=== PATIENT | male | born 1950 | race Caucasian/White ===

== ENCOUNTER → 2017-10-04 | Outpatient (CLI) | payer OTHER ==
[~2017-10-04] MED LIST: CMD/25 PO; ESCI1TAB10 PO; TAMS0.4C38 PO
[2017-10-04 12:34] LABS: BASO % 0.5 %; BASO ABS # 0.04 K/uL (0-0.2); COMPLETE YES; EOS % 1.1 %; HEMATOCRIT 50.3 % (42-52); IG% 0.4 %; LYMPH % 13.1 %; LYMPH ABS # 0.98 K/uL (1.2-3.4); MEAN CELL VOLUME 84.1 fL (80-100); MEAN CORPUSCULAR HEMOGLOBIN 28.8 pg (25-34); MEAN CORPUSCULAR HGB CONC 34.2 g/dl (32-36); MEAN PLATELET VOLUME 10.5 fL (7.4-10.4); MONO % 5.4 %; NEUT % 79.5 %; PLATELET COUNT 201 K/uL (130-400); RED BLOOD COUNT 5.98 M/uL (4.7-6.1); WHITE BLOOD COUNT 7.46 K/uL (4.8-10.8)
[2017-10-04 13:32] LABS: INSULIN FASTING 14.4 mU/L (3-25)
[2017-10-04 13:52] LABS: ESTIMATED AVERAGE GLUCOSE 114 mg/dl; HA1C FLAG Normal (Normal)
[2017-10-04 14:05] LABS: ALT/SGPT 37 U/L (12-78); AST/SGOT 21 U/L (15-37); BLOOD UREA NITROGEN 21 mg/dl (7-18); BUN/CREATININE RATIO 17.5 (10-20); CALCIUM 9.3 mg/dl (8.5-10.1); CARBON DIOXIDE 25 mmol/L (21-32); CHLORIDE 107 mmol/L (98-107); CREATININE 1.22 mg/dl (0.60-1.40); GLUCOSE 109 mg/dl (70-99); POTASSIUM 4.1 mmol/L (3.5-5.1); SODIUM 141 mmol/L (136-145)
[2017-10-04 14:08] LABS: ALKALINE PHOSPHATASE 97 U/L (45-117)
== END | disposition home or self-care (01) ==
LOC: C.LAB 09:58
PROVIDERS: ATTEND General Practice
DX: A69.20 Lyme disease, unspecified (principal); E11.00 Type 2 diabetes mellitus with hyperosmolarity without nonketotic hyperglycemic-hyperosmolar coma (NKHHC); E55.9 Vitamin D deficiency, unspecified; B25.9 Cytomegaloviral disease, unspecified; A77.0 Spotted fever due to Rickettsia rickettsii; A44.0 Systemic bartonellosis; A77.9 Spotted fever, unspecified; B60.0 Babesiosis; B27.90 Infectious mononucleosis, unspecified without complication

== ENCOUNTER → 2017-12-26 | Outpatient (CLI) | payer OTHER ==
[2017-12-26 10:16] LABS: BASO % 0.8 %; BASO ABS # 0.05 K/uL (0-0.2); EOS % 1.1 %; EOS ABS # 0.07 K/uL (0-0.5); HEMATOCRIT 48.1 % (42-52); HEMOGLOBIN 16.6 g/dL (14.0-18.0); IG# 0.03 K/uL (0.00-0.02); LYMPH % 15.9 %; LYMPH ABS # 1.02 K/uL (1.2-3.4); MEAN CELL VOLUME 82.8 fL (80-100); MEAN CORPUSCULAR HEMOGLOBIN 28.6 pg (25-34); MEAN CORPUSCULAR HGB CONC 34.5 g/dl (32-36); MONO % 6.9 %; MONO ABS # 0.44 K/uL (0.11-0.59); NEUT % 74.8 %; PLATELET COUNT 191 K/uL (130-400); RED CELL DISTRIBUTION WIDTH CV 13.8 % (11.5-14.5); RED CELL DISTRIBUTION WIDTH SD 41.6 fL (36.4-46.3); WHITE BLOOD COUNT 6.41 K/uL (4.8-10.8)
[2017-12-26 10:28] LABS: HEMOGLOBIN A1C 5.6 % (4.5-5.6)
[2017-12-26 10:48] LABS: ALBUMIN 3.8 gm/dl (3.4-5.0); ALT/SGPT 25 U/L (12-78); AST/SGOT 18 U/L (15-37); BLOOD UREA NITROGEN 24 mg/dl (7-18); CALCIUM 9.4 mg/dl (8.5-10.1); CARBON DIOXIDE 29 mmol/L (21-32); CREATININE 1.48 mg/dl (0.60-1.40); GLUCOSE 108 mg/dl (70-99); SODIUM 137 mmol/L (136-145)
[2017-12-26 10:54] LABS: ALKALINE PHOSPHATASE 84 U/L (45-117); CHOLESTEROL 230 mg/dl (0-200); LDL CHOLESTEROL CALCULATED 157 mg/dl; TOTAL PROTEIN 7.4 gm/dl (6.4-8.2)
== END | disposition home or self-care (01) ==
LOC: C.LAB 09:33
PROVIDERS: ATTEND General Practice
DX: A69.20 Lyme disease, unspecified (principal); E78.5 Hyperlipidemia, unspecified; E72.11 Homocystinuria; E11.00 Type 2 diabetes mellitus with hyperosmolarity without nonketotic hyperglycemic-hyperosmolar coma (NKHHC); N40.0 Benign prostatic hyperplasia without lower urinary tract symptoms; E55.9 Vitamin D deficiency, unspecified; R79.82 Elevated C-reactive protein (CRP)

== ENCOUNTER 2019-01-26 18:17 | Inpatient (IN) ==
[2019-01-26] MEDS ORDERED: ONDANSETRON INJ 2 MG/ML 2 ML VIAL IV STA (18:35)
[2019-01-26] MEDS ORDERED: SODIUM CHLORIDE 0.9% 1000ML 1,000 ML IV SCH (18:45)
--- NOTE | 2019-01-26 18:59 | Emergency Department Note ---
Entered by Alon Arredondo acting as a scribe for Kyrie Esquivel MD History of Present Illness General Chief complaint: Dehydration Stated complaint: HAD FLU, DEHYDRATION Time Seen by Provider: 01/26/19 18:24 Source: patient History of Present Illness Onset (ago): day(s) (this morning) Location: head Pain Consistency: + constant Quality: + other (weakness) Associated symptoms: + other (Positive for nausea, vomiting, a headache, chest pain, multiple watery stools, and feeling dizzier than usual. Negative for fever, chills, SOB, LOC, abdominal pain, numbness, and urinary symptoms.) The patient is a 68 year old male who presents to the emergency department with complaints of constant weakness beginning this morning. The patient states that he has a history of cerebellar ataxia and Crohns Disease. He notes that he has an ostomy in place and had multiple watery stools last night. He reports that he woke up this morning and was so weak that he could barely walk. He states that he also fell in the bathroom an hour ago and hit his right ribs because of his weakness. The patient notes that he did not hit his head but he reports that he has some chest pain. He also complains of nausea, vomiting, and a headache. He reports that he feels dizzier than usual. He denies any fever, chills, SOB, LOC, abdominal pain, numbness, and urinary symptoms. Home Medications Home Medications Medication Instructions Recorded Confirmed Type mbzybqx-arsceztulwkiq-rtraodll 1 - 2 tab PO Q6H PRN 01/26/19 01/27/19 History [Excedrin Extra Strength] diphenhydramine HCl [Benadryl] 25 mg PO HS 01/26/19 01/27/19 History escitalopram oxalate [Lexapro] 10 mg PO DAILY 01/26/19 01/27/19 History gabapentin 300 mg PO DAILY 01/26/19 01/27/19 History loratadine [Claritin] 10 mg PO HS 01/26/19 01/27/19 History venlafaxine 150 mg PO DAILY 01/26/19 01/27/19 History warfarin 5 mg PO DAILY 01/26/19 01/26/19 History Allergies Allergy/AdvReac Type Severity Reaction Status Date / Time No Known Allergies Allergy Unverified 01/26/19 19:04 Past Med/Surg History Medical History Cerebellar ataxia (Acute) Concussion (Acute) Crohns disease Surgical History History of colectomy Family History Other No significant family history Social History Preferred Language: Italian Communication Ability: Effective 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 and A total of 10 systems reviewed and were otherwise negative Physical Exam Vital Signs Vital Signs - 24 hr 01/26/19 18:18 01/26/19 20:02 01/26/19 21:32 Temperature Temperature Source Oral Sepsis Recent Fever Within 48 Hours No Sepsis New/Unexplained Change in Mental Status No Sepsis Action Taken by Nursing No Action Required Pulse Rate 108 H Pulse Rate [Right Finger] 87 89 Pulse Rhythm [Right Finger] Regular Pulse Strength [Right Finger] Normal Respiratory Rate 20 18 18 Respiratory Effort / Characteristics Non-Labored Non-Labored Respiratory Depth Normal Normal Respiratory Pattern Regular Blood Pressure 100/67 Blood Pressure [Left Arm] 152/115 H 139/89 Blood Pressure [Right Arm] Blood Pressure Mean 78 Blood Pressure Mean [Left Arm] 127 105 Blood Pressure Mean [Right Arm] Blood Pressure Position [Left Arm] Lying Pulse Oximetry 98 94 98 Oxygen Delivery Method Room Air Room Air 01/26/19 23:25 01/26/19 23:32 Temperature 36.6 C 36.6 C Temperature Source Oral Oral Sepsis Recent Fever Within 48 Hours Sepsis New/Unexplained Change in Mental Status Sepsis Action Taken by Nursing Pulse Rate Pulse Rate [Right Finger] 85 86 Pulse Rhythm [Right Finger] Pulse Strength [Right Finger] Respiratory Rate 22 22 Respiratory Effort / Characteristics Non-Labored Non-Labored Respiratory Depth Normal Normal Respiratory Pattern Regular Blood Pressure Blood Pressure [Left Arm] Blood Pressure [Right Arm] 158/94 H 158/94 H Blood Pressure Mean Blood Pressure Mean [Left Arm] Blood Pressure Mean [Right Arm] 115 115 Blood Pressure Position [Left Arm] Pulse Oximetry 96 96 Oxygen Delivery Method Room Air Room Air General: Chronically ill appearing, but not acutely ill appearing, 68 year old male in no acute distress. HEENT: Normal cephalic atraumatic. Pupils are equal round and reactive to light. Extraocular movements are intact. Oropharynx is pink with moist mucous membranes. No swelling of the mouth lips or tongue. Neck: Supple with a midline trachea. No meningeal signs or stiffness, no JVD or bruits. No Stridor. Chest: Clear to auscultation bilaterally. No wheezes or rhonchi. No increased work of breathing. Heart: regular rate and rhythm. Abdomen: Soft without rebound guarding or rigidity. Ostomy in right abdomen with liquid stool, no tenderness or distention. Extremities: No cyanosis clubbing or edema. No calf tenderness or assymetry Spine/Back. Non tender to palpation. No CVA tenderness Skin: Good turgor without rashes. Neurologic exam: Cranial nerves two through 12 are intact. Motor and sensation are intact and symmetrical throughout. Course 1824: Past medical records reviewed. The patient was evaluated in room A11, and a complete history and physical examination were performed. 1933: I reevaluated and updated the patient. He appears comfortable. He is getting hydrated. His sister is at bedside. 2017: Upon reevaluation, the patient is stable. I discussed the results and treatment plan with the patient. He verbalizes understanding and agreement. I discussed the patient's case with Chandler Monroe. The patient will be evaluated for further management and care. Consultations Consultation #1: I reviewed the patient's case with Chandler Monroe. He will evaluate the patient for further management. Time: 20:17 Administered Medications Acetaminophen (Tylenol) 650 mg PO Q4H PRN PRN Reason: pain/fever Stop: 02/25/19 22:48 Last Admin: 01/26/19 23:17 Dose: 650 mg Documented by: [id number] Potassium Chloride/Sodium Chloride (Normal Saline W/20 Meq Kcl) 20 meq in 1,000 mls @ 80 mls/hr IV .[id number] ONE Stop: 01/27/19 11:44 Last Admin: 01/26/19 23:23 Dose: 80 mls/hr Documented by: [id number] Tramadol HCl (Ultram) 25 - 50 mg PO Q4H PRN PRN Reason: Pain Stop: 02/25/19 22:48 Last Admin: 01/26/19 23:16 Dose: 50 mg Documented by: [id number] Discontinued Medications Sodium Chloride (Nss 1000ml) 1,000 mls @ 999 mls/hr IV .[id number] DIOMEDES Stop: 01/26/19 19:45 Last Infusion: 01/26/19 20:00 Dose: 0 mls/hr Documented by: [id number] Admin: 01/26/19 19:01 Dose: 999 mls/hr Documented by: [id number] Lorazepam (Ativan) 0.25 mg PO NOW STA Stop: 01/27/19 00:23 Last Admin: 01/27/19 00:35 Dose: 0.25 mg Documented by: [id number] Ondansetron HCl (Zofran) 4 mg IV NOW STA Stop: 01/26/19 18:36 Last Admin: 01/26/19 19:01 Dose: 4 mg Documented by: [id number] Tramadol HCl (Ultram) 25 mg PO NOW STA Stop: 01/26/19 21:50 Last Admin: 01/26/19 23:24 Dose: Not Given Documented by: [id number] Medical Decision Making Differential Diagnosis Differential diagnoses include: dehydration, trauma, and electrolyte/metabolic abnormalities. Medical Records Attestation: I reviewed the patient's medical records. Home Medications Current Medication List: was personally reviewed by me Laboratory Data Attestation: I reviewed the patient's lab results. Result diagrams: 01/26/19 19:18 01/26/19 19:18 Lab Results 01/26/19 01/26/19 01/26/19 Range/Units 19:18 19:18 19:18 WBC 12.62 H (4.8-10.8) K/uL RBC 5.68 (4.7-6.1) M/uL Hgb 15.9 (14.0-18.0) g/dL Hct 45.5 (42-52) % MCV 80.1 (80-100) fL MCH 28.0 (25-34) pg MCHC 34.9 (32-36) g/dL RDW Std Deviation 43.6 (36.4-46.3) fL RDW Coeff of Young 14.9 H (11.5-14.5) % Plt Count 160 (130-400) K/uL MPV 10.2 (7.4-10.4) fL Immature Gran % (Auto) 0.5 % Neut % (Auto) 92.6 % Lymph % (Auto) 4.2 % [place] % (Auto) 2.5 % Eos % (Auto) 0.1 % Baso % (Auto) 0.1 % Immature Gran # (Auto) 0.06 H (0.00-0.02) K/uL Neut # (Auto) 11.70 H (1.4-6.5) K/uL Lymph # (Auto) 0.53 L (1.2-3.4) K/uL [place] # (Auto) 0.31 (0.11-0.59) K/uL Eos # (Auto) 0.01 (0-0.5) K/uL Baso # (Auto) 0.01 (0-0.2) K/uL PT 19.3 H (9.0-12.0) Seconds INR 2.0 H (0.9-1.1) APTT 31.9 H (21.0-31.0) Seconds PTT Ratio 1.2 Sodium 136 (136-145) mmol/L Potassium 3.7 (3.5-5.1) mmol/L Chloride 105 (98-107) mmol/L Carbon Dioxide 22 (21-32) mmol/L Anion Gap 9.0 (3-11) BUN 32 H (7-18) mg/dl Creatinine 1.79 H (0.6-1.4) mg/dl Est Cr Clr Drug Dosing 44.6 ml/min Est GFR ( Amer) 44.8 Est GFR (Non-Af Amer) 38.6 BUN/Creatinine Ratio 18.1 (10-20) Glucose 118 H (70-99) mg/dl Lactate (0.4-2.0) mmol/L Calcium 9.0 (8.5-10.1) mg/dl Magnesium 1.9 (1.8-2.4) mg/dl Total Bilirubin 0.9 (0.2-1) mg/dl AST 21 (15-37) U/L ALT 30 (12-78) U/L Alkaline Phosphatase 77 (45-117) U/L POC Troponin I (0-0.045) ng/ml Total Protein 7.4 (6.4-8.2) gm/dl Albumin 3.7 (3.4-5.0) gm/dl Globulin 3.6 (2.5-4.0) gm/dl Albumin/Globulin Ratio 1.0 (0.9-2) Lipase 167 (73-393) U/L TSH 1.200 (0.300-4.500) uIu/ml Stl C. diff Tox B Gene (Neg) 01/26/19 01/26/19 01/26/19 Range/Units 19:23 21:49 23:04 WBC (4.8-10.8) K/uL RBC (4.7-6.1) M/uL Hgb (14.0-18.0) g/dL Hct (42-52) % MCV (80-100) fL MCH (25-34) pg MCHC (32-36) g/dL RDW Std Deviation (36.4-46.3) fL RDW Coeff of Young (11.5-14.5) % Plt Count (130-400) K/uL MPV (7.4-10.4) fL Immature Gran % (Auto) % Neut % (Auto) % Lymph % (Auto) % [place] % (Auto) % Eos % (Auto) % Baso % (Auto) % Immature Gran # (Auto) (0.00-0.02) K/uL Neut # (Auto) (1.4-6.5) K/uL Lymph # (Auto) (1.2-3.4) K/uL [place] # (Auto) (0.11-0.59) K/uL Eos # (Auto) (0-0.5) K/uL Baso # (Auto) (0-0.2) K/uL PT (9.0-12.0) Seconds INR (0.9-1.1) APTT (21.0-31.0) Seconds PTT Ratio Sodium (136-145) mmol/L Potassium (3.5-5.1) mmol/L Chloride (98-107) mmol/L Carbon Dioxide (21-32) mmol/L Anion Gap (3-11) BUN (7-18) mg/dl Creatinine (0.6-1.4) mg/dl Est Cr Clr Drug Dosing ml/min Est GFR ( Amer) Est GFR (Non-Af Amer) BUN/Creatinine Ratio (10-20) Glucose (70-99) mg/dl Lactate 1.2 (0.4-2.0) mmol/L Calcium (8.5-10.1) mg/dl Magnesium (1.8-2.4) mg/dl Total Bilirubin (0.2-1) mg/dl AST (15-37) U/L ALT (12-78) U/L Alkaline Phosphatase (45-117) U/L POC Troponin I < 0.03 (0-0.045) ng/ml Total Protein (6.4-8.2) gm/dl Albumin (3.4-5.0) gm/dl Globulin (2.5-4.0) gm/dl Albumin/Globulin Ratio (0.9-2) Lipase (73-393) U/L TSH (0.300-4.500) uIu/ml Stl C. diff Tox B Gene Negative Cdiff Gene (Neg) Imaging Data Radiologist's Impression: Radiology results as stated below per my review and the radiologist's interpretation: SINGLE VIEW CHEST FINDINGS: An AP, portable, upright chest radiograph is obtained. No prior studies are available for comparison at the time of dictation. The examination is degraded by portable technique and patient rotation. The cardiomediastinal silhouette is unremarkable, noting mild atherosclerotic calcification of the thoracic aorta. The lungs and pleural spaces are clear. No pneumothorax is seen. The bony thorax is grossly intact. IMPRESSION: No active disease in the chest. Electronically signed by: Mann Elizalde M.D. 01/26/2019 7:17 PM ECG Data Attestation: I personally reviewed and interpreted this ECG as follows: Indication: weakness Rate (beats per minute): 95 Rhythm: normal sinus Findings: + left axis deviation Comparison ECG Date: no prior available Additional Comments: Nonspecific T wave abnormalities, LVH. Blood Pressure Blood Pressure Findings: Elevated blood pressure Blood Pressure Disposition: further management by hospitalist [facility] Narrative This patient comes in as described above. He was placed on a travel journalist in room A11. He has a history of cerebellar ataxia and ostomy from Crohn's disease comes in after having multiple watery stools last night, he had some nausea and is well. His fcczpko-lq-zgh sick with similar complaints. he fell and hit his right ribs at one point because. he felt weak he did not hit his head. he is on Coumadin. He has no abdominal pain, no shortness of breath or chest pain, at this point he looks well on exam. IV access established and he was given 1 L IV normal saline bolus. Multiple blood testing was obtained EKG and chest x-ray was obtained. He was reassessed frequently. His BUN and creatinine are elevated significantly compared to baseline clinically I do think he is dehydrated. I am concerned about sending him home given the fact that he is dehydrated and falling and on Coumadin with baseline ataxia due to cerebellar ataxia to begin with. I do think he needs to be admitted/observe for hydration and further treatment and evaluation of consulted the hospitalist to see him in the ER for these measures. 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 I confirm that the note above accurately reflects all work, treatment, procedures, and medical decision making performed by me.
--- NOTE | 2019-01-26 19:19 | XRay Report ---
SINGLE VIEW CHEST CLINICAL HISTORY: Fall. Left-sided chest wall pain. FINDINGS: An AP, portable, upright chest radiograph is obtained. No prior studies are available for c omparison at the time of dictation. The examination is degraded by portable technique and patient rot ation. The cardiomediastinal silhouette is unremarkable, noting mild atherosclerotic calcification o f the thoracic aorta. The lungs and pleural spaces are clear. No pneumothorax is seen. The bony thora x is grossly intact. IMPRESSION: No active disease in the chest. Electronically signed by: Mann Elizalde M.D. 01/26/2019 7:17 PM
[2019-01-26 19:26] LABS: Basophils # (auto) 0.01 K/uL (0-0.2); Basophils % (auto) 0.1 %; Eosinophils # (auto) 0.01 K/uL (0-0.5); Eosinophils % (auto) 0.1 %; Hematocrit (blood only) 45.5 % (42-52); Hemoglobin 15.9 g/dL (14.0-18.0); Immature Granulocytes # (auto) 0.06 K/uL (0.00-0.02); Immature Granulocytes % (auto) 0.5 %; Lymphocytes # (auto) 0.53 K/uL (1.2-3.4); Lymphocytes % (auto) 4.2 %; Mean Corpuscular Hgb Conc 34.9 g/dL (32-36); Mean Corpuscular Volume 80.1 fL (80-100); Mean Platelet Volume 10.2 fL (7.4-10.4); Monocytes # (auto) 0.31 K/uL (0.11-0.59); Monocytes % (auto) 2.5 %; Neutrophils % (auto) 92.6 %; Platelet Count 160 K/uL (130-400); RDW Coefficient of Variation 14.9 % (11.5-14.5); RDW Standard Deviation 43.6 fL (36.4-46.3); Red Blood Count 5.68 M/uL (4.7-6.1); White Blood Count 12.62 K/uL (4.8-10.8)
[2019-01-26 19:38] LABS: Partial Thromboplastin Ratio 1.2; Partial Thromboplastin Time 31.9 Seconds (21.0-31.0); Prothrombin Time 19.3 Seconds (9.0-12.0)
[2019-01-26 19:44] LABS: Albumin Level 3.7 gm/dl (3.4-5.0); BUN Creatinine Ratio 18.1 (10-20); Creatinine Clr Calc Pharmacy 44.6 ml/min; Est GFR (African American) 44.8; Est GFR (Non-African American) 38.6; Potassium 3.7 mmol/L (3.5-5.1)
[2019-01-26 19:47] LABS: Bilirubin,Total 0.9 mg/dl (0.2-1); Globulin 3.6 gm/dl (2.5-4.0); Total Protein 7.4 gm/dl (6.4-8.2)
[2019-01-26 20:52] LABS: Magnesium 1.9 mg/dl (1.8-2.4)
--- NOTE | 2019-01-26 21:39 | History & Physical Report ---
Date of Service January 26, 2019 Assessment & Plan (1) Ambulatory dysfunction: History cerebellar ataxia IBD status post surgery ARf 2 to Diarrhea rule out C. difficile recurrent DVT on Coumadin, INR therapeutic mood disorder, suboptimal past tobacco abuse OBS GMF Stool C. difficile Monitor creatinine response to IVF, supportive measures for gastroenteritis if stool C. difficile negative Psych consult RE suboptimal mood PT OT eval DVT prophylaxis . Coumadin INR between 2 and 3 Full code Patient's sister requesting updates from providers. Ms. Monik Hawley, contact numbers [phone]. History of Present Illness Chief Complaint: Fall, generalized weakness Primary Care Provider: Henrique Roberts MD History obtained from patient, family, and records. Medical history significant for cerebellar ataxia, IBD status post surgery, recurrent DVT on Coumadin, mood disorder, past tobacco abuse, BPH as per records. Yesterday patient noted increased watery stool drainage from ostomy, no abdominal pain/nausea, emesis. Increasing generalized weakness. Mechanical fall at home causing patient to fall on the right side. No head trauma, no syncope, no S OB. Right-sided ribcage/abdominal pain from fall. Usual achy headache symptoms which patient attributes to cerebellar ataxia for which [facility] specialist is contemplating Zonisamide trial. Patient family worried about worsening gait instability from cerebellar ataxia over the last few weeks due to patient living alone. Patient mood not the best of late, denies suicidality. Medical History as above Surgical History : TURP, bowel surgery/ileostomy Family History : Breast cancer, heart disease, black lung Personal/Social history : Past tobacco abuse, no EtOH intake, retired arts teacher Allergies Allergy/AdvReac Type Severity Reaction Status Date / Time No Known Allergies Allergy Unverified 01/26/19 19:04 Home Medications Home Medications Medication Instructions Recorded Confirmed Type mhzrjom-jqsndooruswjg-jhadefqa 1 - 2 tab PO Q6H PRN 01/26/19 01/27/19 History [Excedrin Extra Strength] diphenhydramine HCl [Benadryl] 25 mg PO HS 01/26/19 01/27/19 History escitalopram oxalate [Lexapro] 10 mg PO DAILY 01/26/19 01/27/19 History gabapentin 300 mg PO DAILY 01/26/19 01/27/19 History loratadine [Claritin] 10 mg PO HS 01/26/19 01/27/19 History venlafaxine 150 mg PO DAILY 01/26/19 01/27/19 History warfarin 5 mg PO DAILY 01/26/19 01/26/19 History Past Med/Surg History Medical History Cerebellar ataxia (Acute) Concussion (Acute) Crohns disease Surgical History History of colectomy Family History Other No significant family history Social History Communication Ability: Effective Beliefs That Will Affect Care: None Current Living Situation: Group Home Current Living Situation Comment: Independent living Other Information That Helps Us Care for You: Yes (Depression) Feels Safe at Home: Yes Safety Concerns: Feels Safe At This Time Smoking Status: Former smoker Hx Alcohol Use: Yes (Social Drinker in past) Hx Substance Use: No Review of Systems As per HPI, all 10 systems reviewed, all other ROS negative Physical Exam Vital Signs (Past 24 Hours): Last Vital Signs Pulse 89 01/26/19 21:32 Resp 18 01/26/19 21:32 BP 139/89 01/26/19 21:32 Pulse Ox 98 01/26/19 21:32 Physical Exam: GENERAL: Slightly uncomfortable, chronic dysarthria, no respiratory distress SKIN: Normal color, warm HEENT: Bespectacled, pink palpebral conjunctivae, no ptosis, dry buccal mucosa NECK : Supple, no tenderness CHEST : CTA, right subcostal tenderness HEART : RRR, no obvious murmurs ABDOMEN: Some distention, ostomy noted nontender EXTREMITIES : No LE swelling/tenderness, no other conspicuous deformities noted NEUROLOGIC : Coherent, dysarthric, no facial asymmetry, gait and stance not assessed, intention tremors Results & Data Laboratory Results Laboratory Results WBC 12.62 K/uL (4.8-10.8) H 01/26/19 19:18 RBC 5.68 M/uL (4.7-6.1) 01/26/19 19:18 Hgb 15.9 g/dL (14.0-18.0) 01/26/19 19:18 Hct 45.5 % (42-52) 01/26/19 19:18 MCV 80.1 fL (80-100) 01/26/19 19:18 MCH 28.0 pg (25-34) 01/26/19 19:18 MCHC 34.9 g/dL (32-36) 01/26/19 19:18 RDW Std Deviation 43.6 fL (36.4-46.3) 01/26/19 19:18 RDW Coeff of Young 14.9 % (11.5-14.5) H 01/26/19 19:18 Plt Count 160 K/uL (130-400) 01/26/19 19:18 MPV 10.2 fL (7.4-10.4) 01/26/19 19:18 Immature Gran % (Auto) 0.5 % 01/26/19 19:18 Neut % (Auto) 92.6 % 01/26/19 19:18 Lymph % (Auto) 4.2 % 01/26/19 19:18 [place] % (Auto) 2.5 % 01/26/19 19:18 Eos % (Auto) 0.1 % 01/26/19 19:18 Baso % (Auto) 0.1 % 01/26/19 19:18 Immature Gran # (Auto) 0.06 K/uL (0.00-0.02) H 01/26/19 19:18 Neut # (Auto) 11.70 K/uL (1.4-6.5) H 01/26/19 19:18 Lymph # (Auto) 0.53 K/uL (1.2-3.4) L 01/26/19 19:18 [place] # (Auto) 0.31 K/uL (0.11-0.59) 01/26/19 19:18 Eos # (Auto) 0.01 K/uL (0-0.5) 01/26/19 19:18 Baso # (Auto) 0.01 K/uL (0-0.2) 01/26/19 19:18 PT 19.3 Seconds (9.0-12.0) H 01/26/19 19:18 INR 2.0 (0.9-1.1) H 01/26/19 19:18 APTT 31.9 Seconds (21.0-31.0) H 01/26/19 19:18 PTT Ratio 1.2 01/26/19 19:18 Sodium 136 mmol/L (136-145) 01/26/19 19:18 Potassium 3.7 mmol/L (3.5-5.1) 01/26/19 19:18 Chloride 105 mmol/L (98-107) 01/26/19 19:18 Carbon Dioxide 22 mmol/L (21-32) 01/26/19 19:18 Anion Gap 9.0 (3-11) 01/26/19 19:18 BUN 32 mg/dl (7-18) H 01/26/19 19:18 Creatinine 1.79 mg/dl (0.6-1.4) H 01/26/19 19:18 Est Cr Clr Drug Dosing 44.6 ml/min 01/26/19 19:18 Est GFR ( Amer) 44.8 01/26/19 19:18 Est GFR (Non-Af Amer) 38.6 01/26/19 19:18 BUN/Creatinine Ratio 18.1 (10-20) 01/26/19 19:18 Glucose 118 mg/dl (70-99) H 01/26/19 19:18 Calcium 9.0 mg/dl (8.5-10.1) 01/26/19 19:18 Magnesium 1.9 mg/dl (1.8-2.4) 01/26/19 19:18 Total Bilirubin 0.9 mg/dl (0.2-1) 01/26/19 19:18 AST 21 U/L (15-37) 01/26/19 19:18 ALT 30 U/L (12-78) 01/26/19 19:18 Alkaline Phosphatase 77 U/L (45-117) 01/26/19 19:18 POC Troponin I < 0.03 ng/ml (0-0.045) 01/26/19 19:23 Total Protein 7.4 gm/dl (6.4-8.2) 01/26/19 19:18 Albumin 3.7 gm/dl (3.4-5.0) 01/26/19 19:18 Globulin 3.6 gm/dl (2.5-4.0) 01/26/19 19:18 Albumin/Globulin Ratio 1.0 (0.9-2) 01/26/19 19:18 Lipase 167 U/L (73-393) 01/26/19 19:18 TSH 1.200 uIu/ml (0.300-4.500) 01/26/19 19:18 Diagnostic Findings Chest x-ray showed no active disease EKG as per my interpretation : Rate 95, NSR, LAD, LAFB, ST depression anterolateral leads
[2019-01-26] MEDS ORDERED: TRAMADOL HCL 50 MG TABLET PO STA (21:49)
[2019-01-26] MEDS ORDERED: ACETAMINOPHEN 325 MG TAB PO PRN (22:49)
[2019-01-26] MEDS ORDERED: HYDROmorphone INJ 0.5 MG/0.5 ML SYR IV PRN (22:49)
[2019-01-26] MEDS ORDERED: PROCHLORPERAZINE 5 MG in SYRINGE 4 ML IV PRN (22:49)
[2019-01-26] MEDS ORDERED: NSS + 20MEQ KCL 20 MEQ/1,000 ML BAG IV ONE (23:15)
[2019-01-26] MEDS ORDERED: WARFARIN SOD 5 MG TAB PO ONE (23:15)
[2019-01-26] MEDS: TRAMADOL HCL 50 MG TABLET PO PRN (23:16)
[2019-01-27] MEDS ORDERED: LORazepam 0.5 MG TAB PO STA ×2 (00:22→20:46)
[2019-01-27 06:10] LABS: Eosinophils # (auto) 0.09 K/uL (0-0.5); Eosinophils % (auto) 1.4 %; Hematocrit (blood only) 43.9 % (42-52); Hemoglobin 14.8 g/dL (14.0-18.0); Immature Granulocytes # (auto) 0.05 K/uL (0.00-0.02); Immature Granulocytes % (auto) 0.8 %; Lymphocytes # (auto) 0.33 K/uL (1.2-3.4); Mean Corpuscular Hgb Conc 33.7 g/dL (32-36); Mean Platelet Volume 10.4 fL (7.4-10.4); Monocytes % (auto) 9.1 %; Neutrophils # (auto) 5.55 K/uL (1.4-6.5); Neutrophils % (auto) 83.7 %; Platelet Count 147 K/uL (130-400); RDW Coefficient of Variation 15.1 % (11.5-14.5); Red Blood Count 5.42 M/uL (4.7-6.1); White Blood Count 6.62 K/uL (4.8-10.8)
[2019-01-27 06:38] LABS: INR 2.2 (0.9-1.1); Prothrombin Time 21.7 Seconds (9.0-12.0)
[2019-01-27 06:39] LABS: BUN Creatinine Ratio 22.2 (10-20); Calcium 8.6 mg/dl (8.5-10.1); Creatinine Clr Calc Pharmacy 60.9 ml/min; Est GFR (African American) 65.3; Est GFR (Non-African American) 56.3; Potassium 3.5 mmol/L (3.5-5.1)
[2019-01-27 07:23] LABS: Appearance Urine Clear (Clear); Bacteria Urine Automated Negative (Negative); Bilirubin Urine Negative (Negative); Blood Urine Trace (Negative); Color Urine Dark Yellow; Epithelial Cell Urine Auto 20-30 /lpf (0-5); Glucose Urine UA Negative (Negative); Ketones Urine Trace (Negative); Leukocyte Esterase Urine Negative (Negative); Nitrite Urine Negative (Negative); Protein Urine 1+ (Negative); Specific Gravity Urine 1.034 (1.000-1.030); Urobilinogen Urine Negative (Negative)
[2019-01-27] MEDS: VENLAFAXINE HCL XR 150 MG CAPXR PO SCH (08:10)
[2019-01-27] MEDS: ESCITALOPRAM OXALATE 10 MG TAB PO SCH (08:10)
[2019-01-27] MEDS: DULOXETINE HCL 30 MG CAP PO SCH (08:10)
[2019-01-27] MEDS ORDERED: Nursing to Pharmacy Communication ONE (08:20)
[2019-01-27] MEDS ORDERED: GABAPENTIN 300 MG CAP PO SCH (09:00)
[2019-01-27] MEDS: TRAMADOL HCL 50 MG TABLET PO PRN (11:34)
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
[2019-01-27] MEDS ORDERED: KETOROLAC TROMETHAMINE 15 MG/ML VIAL IV ONE (14:35)
[2019-01-27] MEDS: LIDOCAINE 5% 1 PATCH TD SCH (15:20)
[2019-01-27] MEDS: WARFARIN SOD 5 MG TAB PO SCH (15:22)
[2019-01-27] MEDS: ACETAMINOPHEN 500 MG TAB PO SCH ×2 (15:22→23:03)
[2019-01-27] MEDS: GABAPENTIN 300 MG CAP PO SCH (20:39)
[2019-01-27] MEDS ORDERED: LORATADINE 10 MG TAB PO SCH (21:00)
[2019-01-28 07:14] LABS: Hematocrit (blood only) 47.7 % (42-52); Hemoglobin 16.4 g/dL (14.0-18.0); Mean Corpuscular Hgb Conc 34.4 g/dL (32-36); Mean Corpuscular Volume 80.7 fL (80-100); Mean Platelet Volume 10.5 fL (7.4-10.4); Platelet Count 148 K/uL (130-400); RDW Coefficient of Variation 14.8 % (11.5-14.5); RDW Standard Deviation 43.8 fL (36.4-46.3); Red Blood Count 5.91 M/uL (4.7-6.1)
[2019-01-28 07:23] LABS: Prothrombin Time 19.7 Seconds (9.0-12.0)
[2019-01-28 07:51] LABS: BUN Creatinine Ratio 24.7 (10-20); Calcium 9.3 mg/dl (8.5-10.1); Est GFR (African American) 73.3; Est GFR (Non-African American) 63.3; Magnesium 2.1 mg/dl (1.8-2.4); Potassium 4.1 mmol/L (3.5-5.1)
[2019-01-28] MEDS: ACETAMINOPHEN 500 MG TAB PO SCH ×4 (08:57→21:52)
[2019-01-28] MEDS: LIDOCAINE 5% 1 PATCH TD SCH (08:58)
[2019-01-28] MEDS: DULOXETINE HCL 30 MG CAP PO SCH (08:58)
[2019-01-28] MEDS: TRAMADOL HCL 50 MG TABLET PO PRN (09:01)
[2019-01-28] MEDS: ESCITALOPRAM OXALATE 10 MG TAB PO SCH (10:23)
[2019-01-28] MEDS: VENLAFAXINE HCL XR 150 MG CAPXR PO SCH (10:23)
[2019-01-28] MEDS ORDERED: ONDANSETRON INJ 2 MG/ML 2 ML VIAL IV PRN (10:45)
[2019-01-28] MEDS: WARFARIN SOD 5 MG TAB PO SCH ×2 (16:02→17:33)
[2019-01-28] MEDS ORDERED: WARFARIN SOD 5 MG TAB PO ONE (16:46)
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
[2019-01-28] MEDS: SODIUM CHLORIDE 0.9% 1000ML 1,000 ML IV SCH (17:40)
[2019-01-28] MEDS: ZOLPIDEM TARTRATE 5 MG TAB PO SCH (21:02)
[2019-01-28] MEDS: GABAPENTIN 300 MG CAP PO SCH (21:03)
[2019-01-29] MEDS: ACETAMINOPHEN 500 MG TAB PO SCH ×4 (06:05→21:27)
[2019-01-29] MEDS: SODIUM CHLORIDE 0.9% 1000ML 1,000 ML IV SCH (06:06)
[2019-01-29 07:31] LABS: Hematocrit (blood only) 45.8 % (42-52); Hemoglobin 15.7 g/dL (14.0-18.0); Mean Corpuscular Hgb Conc 34.3 g/dL (32-36); Mean Corpuscular Volume 80.9 fL (80-100); Mean Platelet Volume 10.4 fL (7.4-10.4); Platelet Count 175 K/uL (130-400); RDW Coefficient of Variation 14.8 % (11.5-14.5); RDW Standard Deviation 43.6 fL (36.4-46.3); Red Blood Count 5.66 M/uL (4.7-6.1); White Blood Count 7.86 K/uL (4.8-10.8)
[2019-01-29 07:40] LABS: INR 2.9 (0.9-1.1); Prothrombin Time 27.2 Seconds (9.0-12.0)
[2019-01-29 08:05] LABS: BUN Creatinine Ratio 24.6 (10-20); Calcium 8.7 mg/dl (8.5-10.1); Creatinine Clr Calc Pharmacy 73.2 ml/min; Est GFR (African American) 81.5; Est GFR (Non-African American) 70.4; Potassium 3.6 mmol/L (3.5-5.1)
[2019-01-29] MEDS: ESCITALOPRAM OXALATE 10 MG TAB PO SCH (08:42)
[2019-01-29] MEDS: VENLAFAXINE HCL XR 150 MG CAPXR PO SCH (08:42)
[2019-01-29] MEDS: LIDOCAINE 5% 1 PATCH TD SCH (08:43)
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
--- NOTE | 2019-01-29 16:22 | Urology Consultation ---
Date of Consultation January 29, 2019 Assessment & Plan (1) Incomplete bladder emptyinyo M with voiding dysfunction, incomplete emptying, s/p TURP Care discussed with Dr. Nicholson. Plan to begin bladder scans qshift after spontaneous void. If residual >300cc, please straight cath. Will check PSA with AM labs. Renal US to r/o structural abnormalities. Casts in UA. Thank you for the consultation, we will continue to monitor closely with primary service. Please see additional comments by Dr. Nicholson as indicated. History of Present Illness Reason for Consultation: Voiding dysfunction, UR Requesting Physician: Dr. Sanders Attending Physician: Angela Sanders, DO History of Present Illness 68yo M with hx cerebral ataxia, chron's disease s/p ostolmy, recurrent DVT on Coumadin, mood disorder, and BPH was admitted due to mechanical fall onto his right side d/t increased weakness and dehydration related to acute gastrointestinal illness. No head trauma, no syncope, no SOB. Right-sided ribcage/abdominal pain from fall. All information received by patient report, records unavailable. We were consulted for evaluation of incomplete bladder emptying, voiding dysfunction. Patient is established with Dr. Beasley, but requested "fresh eyes". Hx TURP 2 years ago. Pt has required straight cath x2 during hospital stay, now voiding spontaneously. UA with casts, not suspicious for UTI. Cr stable and within normal limits. Making good UO. Pt still requires to push/strain to empty. Dr Beasley recommended CIC, but patient is uninterested. Denies abdominal or suprapubic pain. Denies fevers/chills. Denies dysuria or hematuria. Allergies Allergy/AdvReac Type Severity Reaction Status Date / Time No Known Allergies Allergy Unverified 01/26/19 19:04 Home Medications Home Medications Medication Instructions Recorded Confirmed Type [id number] 1 - 2 tab PO Q6H PRN 01/26/19 01/27/19 History [Excedrin Extra Strength] diphenhydramine HCl [Benadryl] 25 mg PO HS 01/26/19 01/27/19 History escitalopram oxalate [Lexapro] 10 mg PO DAILY 01/26/19 01/27/19 History gabapentin 300 mg PO DAILY 01/26/19 01/27/19 History loratadine [Claritin] 10 mg PO HS 01/26/19 01/27/19 History venlafaxine 150 mg PO DAILY 01/26/19 01/27/19 History warfarin See Rx Instructions .ROUTE .COMPLEX 01/26/19 01/28/19 History Patient History Medical History Cerebellar ataxia (Acute) Concussion (Acute) Crohns disease Surgical History History of colectomy Family History Other No significant family history Social History Communication Ability: Effective Beliefs That Will Affect Care: None Current Living Situation: [facility] Current Living Situation Comment: Independent living Other Information That Helps Us Care for You: Yes (Depression) Feels Safe at Home: Yes Safety Concerns: Feels Safe At This Time Smoking Status: Former smoker Hx Alcohol Use: Yes (Social Drinker in past) Hx Substance Use: No Review of Systems Constitutional: no fever and no chills Eyes: no problem reported Ear, Nose, Mouth, Throat: no ear pain and no tinnitus Respiratory: no cough and no dyspnea Cardiovascular: no chest pain Gastrointestinal: no abdominal pain, no belching, no nausea and no vomiting Genitourinary (Male): no dysuria, no urinary hesitancy and no hematuria Musculoskeletal: no back pain Integumentary: no acne and no rash Neurologic: + gait abnormality, + unsteadiness and + falls; no numbness and no paresthesia Psychiatric: no behavioral changes and no depression Endocrine: no fatigue and no polydipsia Hematologic / Lymphatic: no easy bleeding Allergy / Immunological: no GI upset with certain foods Physical Exam Vital Signs (Past 24 Hours): Last Vital Signs Temp 36.4 C L 01/29/19 15:53 Pulse 75 01/29/19 15:53 Resp 18 01/29/19 15:53 BP 149/90 H 01/29/19 15:53 Pulse Ox 96 01/29/19 15:53 Constitutional: well nourished; no acute distress Eyes: no nystagmus ENMT: Ears: no hearing impairment Nose: no external nose abnormality Neck: trachea midline Respiratory: no respiratory distress and does not use accessory muscles Cardiovascular: Vessels: no JVD Extremities: no edema Gastrointestinal (Abdomen): Inspection/Auscultation: abdomen not distended and no abdominal edema Percussion/Palpation: abdomen soft; abdomen nontender Musculoskeletal: Head/Neck/Chest: + abnormal head shape and + evidence of head trauma Skin: no rashes and no lesions Neurologic: Motor/Sensory: no tremor slow speech. 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 Psychiatric: Orientation: alert and oriented x 3 Eye Contact: good eye contact Lymphatic: no cervical or axillary lymphadenopathy Results & Data Laboratory Results Laboratory Results - last 48 hr 01/28/19 01/28/19 01/28/19 06:51 06:51 06:51 WBC 6.30 RBC 5.91 Hgb 16.4 Hct 47.7 MCV 80.7 MCH 27.7 MCHC 34.4 RDW Std Deviation 43.8 RDW Coeff of Young 14.8 H Plt Count 148 MPV 10.5 H PT 19.7 H INR 2.0 H Sodium 139 Potassium 4.1 D Chloride 106 Carbon Dioxide 27 Anion Gap 7.0 BUN 29 H Creatinine 1.19 Est Cr Clr Drug Dosing 67.0 Est GFR ( Amer) 73.3 Est GFR (Non-Af Amer) 63.3 BUN/Creatinine Ratio 24.7 H Glucose 90 Calcium 9.3 Phosphorus Magnesium 2.1 01/29/19 01/29/19 01/29/19 07:14 07:14 07:14 WBC 7.86 RBC 5.66 Hgb 15.7 Hct 45.8 MCV 80.9 MCH 27.7 MCHC 34.3 RDW Std Deviation 43.6 RDW Coeff of Young 14.8 H Plt Count 175 MPV 10.4 PT 27.2 H INR 2.9 H Sodium 139 Potassium 3.6 Chloride 109 H Carbon Dioxide 25 Anion Gap 5.0 BUN 27 H Creatinine 1.09 Est Cr Clr Drug Dosing 73.2 Est GFR ( Amer) 81.5 Est GFR (Non-Af Amer) 70.4 BUN/Creatinine Ratio 24.6 H Glucose 95 Calcium 8.7 Phosphorus 3.0 Magnesium 2.0
[2019-01-29] MEDS: WARFARIN SOD 5 MG TAB PO SCH (16:28)
[2019-01-29] MEDS: GABAPENTIN 300 MG CAP PO SCH (21:27)
[2019-01-29] MEDS: ZOLPIDEM TARTRATE 5 MG TAB PO SCH (21:27)
[2019-01-30] MEDS: ACETAMINOPHEN 500 MG TAB PO SCH ×3 (05:55→21:07)
[2019-01-30 07:02] LABS: Prothrombin Time 33.5 Seconds (9.0-12.0)
[2019-01-30 07:10] LABS: INR 3.6 (0.9-1.1)
[2019-01-30] MEDS: VENLAFAXINE HCL XR 150 MG CAPXR PO SCH (07:45)
[2019-01-30] MEDS: ESCITALOPRAM OXALATE 10 MG TAB PO SCH (07:45)
[2019-01-30] MEDS: LIDOCAINE 5% 1 PATCH TD SCH (07:46)
--- NOTE | 2019-01-30 09:13 | Ultrasound Report ---
US renal/blad retro comp HISTORY: 68 years-old Male evaluation for voiding dysfunction, UR acute dysuria COMPARISON: None available TECHNIQUE: Multiple real-time sonographic images of the kidneys and urinary bladder were obtained ass essing grayscale appearance and color flow FINDINGS: Study is limited secondary to patient unable to change into different positions for the study. The right kidney measures 11.5 x 4.6 x 6.2 cm and demonstrates no renal calculi, hydronephrosis or salmon spicious mass lesions. A cyst is noted about the upper pole right kidney measuring up to 1.2 cm in gr eatest dimension. Left kidney measures 10.3 x 5.5 x 5.9 cm and demonstrates no renal calculi or hydronephrosis. Hypoech oic lesion without internal flow suggestive of a probable cyst noted about the upper pole left kidney , 2.4 cm. There is mild circumferential wall thickening and trabeculation. Urinary bladder is otherwise unremar kable. Bilateral ureteral jets noted. Postvoid residual of 341 mL. Trace amount of layering debris no ivon within urinary bladder lumen. IMPRESSION: 1. No renal calculi or hydronephrosis. 2. Mild urinary bladder wall thickening with trabeculation and minimal dependent urinary bladder debr is. Correlate with urinalysis. 3. Post void residual of 341 mL. The above report was generated using voice recognition software. It may contain grammatical, syntax o r spelling errors. Electronically signed by: Gurpreet Santacruz M.D. 01/30/2019 9:12 AM
--- NOTE | 2019-01-30 12:39 | Urology Progress Note ---
Date of Service January 30, 2019 Assessment & Plan (1) Incomplete bladder emptyinyo M with voiding dysfunction, incomplete emptying, s/p TURP Sister at bedside at time of evaluation. PSA 0.64, Cr wnl. Renal US stable - bilat cysts. no hydro or obs stones. mild bladder thickening, some PVR. Per nursing he voided again after study. PVR ranging 200-300. Pt feels his voiding patterns are back to his norm. Not interested in learning CIC Will arrange for outpatient f/u in 2-3 weeks. Patient states "if I decide to do it". Thank you for the consultation, please reconsult us with additional concerns, questions or changes in patient status. Subjective Feels voiding is back to his norm, does push or strain. Denies dysuria or hematuria. Renal US done - no hydro or obstructing stones. Cr remains within normal limits. Physical Exam Vital Signs (Past 24 Hours): Last Vital Signs Temp 36.4 C L 01/30/19 07:49 Pulse 74 01/30/19 07:49 Resp 16 01/30/19 07:49 BP 132/80 01/30/19 07:49 Pulse Ox 93 01/30/19 07:49 Physical Exam: A&Ox3 RRR Speaking slowly, flat affect Sitting in chair at time of evaluation
[2019-01-30] MEDS: WARFARIN SOD 5 MG TAB PO SCH (15:33)
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
[2019-01-30] MEDS: GABAPENTIN 300 MG CAP PO SCH (21:03)
[2019-01-30] MEDS: ZOLPIDEM TARTRATE 5 MG TAB PO SCH (21:03)
[2019-01-31] MEDS: ACETAMINOPHEN 500 MG TAB PO SCH ×2 (05:29→14:42)
[2019-01-31 08:16] LABS: Prothrombin Time 28.8 Seconds (9.0-12.0)
[2019-01-31 08:27] VITALS: O2SAT 96
[2019-01-31] MEDS: LIDOCAINE 5% 1 PATCH TD SCH (08:38)
[2019-01-31] MEDS: ESCITALOPRAM OXALATE 10 MG TAB PO SCH (08:38)
[2019-01-31] MEDS: VENLAFAXINE HCL XR 150 MG CAPXR PO SCH (08:38)
[2019-01-31 15:18] VITALS: PULSE 75; TEMP 98.2
[2019-01-31 16:11] VITALS: BP 127/82
[2019-01-31] MEDS: WARFARIN SOD 5 MG TAB PO SCH (16:12)
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
[2019-02-04] MEDS ORDERED: WARFARIN SOD 10 MG TAB PO SCH (16:00)
== END 2019-01-31 17:20 | DRG 683 ==
LOC: ED 18:17 → 4E 18:17 → SUATTDRO 21:42 → 4E 22:32 → SUATTDRO 01-27 14:10